=== PATIENT | female | born 1930 | race Caucasian/White ===

== ENCOUNTER → 2016-04-02 | Outpatient (CLI) | payer OTHER ==
[~2016-04-02] VITALS: Ht 154.9 cm; Wt 86.2 kg
[~2016-04-02] MED LIST: ADVIL100 M2 PO; ASPIR 8181 MG PO; ASPIRIN EC81 M1 PO; ATIVAN0.5 MG PO; BACTRIM DS TAB1 EACH PO; BUDEPRION SR150 MG PO; BUPROPION XL300 MG PO; CALCIUM 500+D1 EAC2 PO; CALCIUM 600 +1 EAC1 PO; CELEBREX 200 M200 M1; CELEBREX 200 M200 M1 PO; CELEBREX100 MG/1 C PO; CELEBREX50 MG PO; COENZYME Q10200 M2 PO; COLACE100 MG PO; COREG6.25 MG PO; CORTEF5 MG PO; ESCITALOPRAM OX20 MG PO; FENTANYL PA25 MCG/HR TRANSDERM; FLORASTOR250 MG PO; FLORINEF ACETA0.1 MG PO; FLUDROCORTISON0.1 MG PO; HYDROCHLOROTH12.5 M1 PO; HYDROCODON-ACE1 EAC7 PO; HYDROCODONE-AP1 EAC6 PO; K-DUR10 MEQ PO; LEVOTHYROXINE0.05 MG PO; LEVOXYL75 MCG PO; LEXAPRO 10 MG T10 M1 PO; LORTAB 10-3251 EACH PO; MAGNESIUM400 MG PO; MEDROL4 MG PO; MULTIVITAMINS1 EAC7 PO; NEXIUM40 MG PO; NORCO 5-325 TA1 EACH PO; NORVASC2.5 MG PO; OMEGA-3 FISH O1 EAC3 PO; OMEPRAZOLE 20 M20 M1 PO; ONDANSETRON HCL4 M2 PO; ORAPRED15 MG/5 M1; POTASSIUM20 PO; RISPERDAL 1 MG T1 MG PO; SEROQUEL 25 MG25 M1 PO; SIMVASTATIN10 MG PO; TOPROL XL50 MG PO; TRAMADOL 50 MG50 MG PO; VITAMIN D1000 UNI1 PO; VITAMIN D5000 UNIT PO; VOLTAREN GEL 1100 G2 TOP; [UNRECOGNIZED DRUG - CODE] PO
--- NOTE | ~2016-04-02 | HPC ---
[facility] [place] [address] PAIN MANAGEMENT CONSULTATION Name: NATHEN TAMAYOCrow IBARRABOBBI Room #: REG Gerber Perez#: [id number] Admission: 04/02/16 Attend Phys: Sal Kaur DO Discharge: Date of : 32 Report #: [id number] THIS REPORT FOR: //name// CC: TAMMIE Kaur HISTORY OF PRESENT ILLNESS: The patient is an 85-year-old female, prior seen on 11/03/2015. At that time, she was diagnosed with neuropathic pain, chronic pain syndrome, component of lumbar radiculopathy status post decompressive laminectomy, medication management complicated by dementia. She was given a caudal epidural injection at that time. She returns to the pain clinic today. We had a prolonged visit from 15:16 to 15:45. Greater than 50% of this 25+ minute visit was spent counseling the patient. The patient notes that she has low back pain, left greater than right, 0 at present, 3 with walking. She describes chronic aching pain. She notes the prior injection gave her 80% relief, until she fell on December and broke her hip. She actually had a left pelvic rami fracture, and left acetabular fracture. She was in the hospital 01/09/2016 through 01/13/2016. She was discharged, using fentanyl patch and oxycodone. She has weaned down to hydrocodone, fairly nominal dose at 5/325 one tablet t.i.d. She was seen in the company today of her daughter, who typically is seen with her. Her daughter is supportive and helps with the medical history. At last visit, we did briefly brought up the possibility of spinal cord stimulator, though really at present, she does not have radicular component of pain, and it is primarily in the left low back SI area. PHYSICAL EXAMINATION: Shows a pleasant 85-year-old female, BMI is 35.9 kilograms per meter squared. Blood pressure is 143/75, pulse of 86, respirations are 18. She is alert and oriented to person, place, and time, judged to be a reasonable historian. Again, he has some minor cognitive defect, but is pretty oriented today. She does have a difficult time telling me how much pain she has with activity. She is little bit confused about medication changes from hospital discharge back in 01/13/2016 to today's date. Again, however, she is on a much lower dose of opiate overall. She does note pain seems to be exacerbated with sitting and/or standing and walking. She is in a wheelchair today, though objectively lower extremity strength is symmetric. Straight leg raise is negative. She is very tender over the left SI, with a positive Dima test on this side. ASSESSMENT: Lumbar radiculopathy status post decompressive laminectomy and neuropathic pain, requiring complex medication management, history of some dementia and now with a new component of what appears to be sacroiliac mediated pain, lumbosacral spondylosis, left greater than right. Again, tender over the left SI area with modestly positive Dima's test on this side. [address] [address] PAIN MANAGEMENT CONSULTATION Name: NATHEN TAMAYOCrow MARTINES Room #: REG BEREINCE Perez#: [id number] Admission: 04/02/16 Attend Phys: Sal Kaur, Discharge: Date of : 32 Report #: [id number] RECOMMENDATIONS: 1. Continue hydrocodone 5/325 t.i.d. try holding the p.m. dose, if pain is fairly nominal. 2. Recommend resuming Aleve [id number] (naproxen sodium) 220 mg with breakfast. She really has no dramatic contraindications, and I think this may help with some of the prostaglandin-induced myofascial and/or muscular component of pain. 3. Follow up in 3 weeks for reevaluation and consideration for left SI joint injection at that time. We will have her cancelled, if the left back pain is improving. We will seek authorization for the left SI joint injection nonetheless. Thank you for allowing me to participate in this patient's care. <ELECTRONICALLY SIGNED> By: Sal Kaur DO 04/07/16 0729 0721 1122 Sal Kaur DO /nt
[2016-04-02 15:11] VITALS: BP 143/75
== END ==
LOC: PAIN 07:42
DX: M47.27 Other spondylosis with radiculopathy, lumbosacral region (principal); G89.4 Chronic pain syndrome; M96.1 Postlaminectomy syndrome, not elsewhere classified; F03.90 Unspecified dementia, unspecified severity, without behavioral disturbance, psychotic disturbance, mood disturbance, and anxiety

== ENCOUNTER → 2016-08-27 | Outpatient (CLI) | payer OTHER ==
[~2016-08-27] VITALS: Ht 154.9 cm; Wt 84.6 kg
[~2016-08-27] MED LIST changes: +CALCIUM 500 +1 EAC5 PO
--- NOTE | ~2016-08-27 | HPC ---
[facility] [place] [address] PAIN MANAGEMENT CONSULTATION Name: ROSELYN TAMAYO Room #: REG [facility] MeiJose#: [id number] Admission: 08/27/16 Attend Phys: Sal Kaur DO Discharge: Date of : 32 Report #: [id number] THIS REPORT FOR: //name// CC: MAIKOL Kaur DATE OF SERVICE: 08/27/2016 The patient is a very pleasant 85-year-old female well known to the pain clinic, typically treated for symptomatic SI joint dysfunction, right side. She was seen 05/17/2016. We did a right SI joint injection at that time with overall improvement of baseline pain. She has continued with some physical exercises at home, though she notes recently pain has begun to recur and it is starting to get exacerbated with the exercises. She does use a rollator type walker. She notes pain is episodic, stays in the right low back and buttock, does not radiate down in the leg. It "grabs" her at various times. She does use some Voltaren gel topically and it is helpful. Returns to pain clinic today again noting greater than 80% relief following the SI joint injection now some 3 months ago. Relief was good for about 2 months, gradually begun to recur. She denies antecedent trauma and overuse. PHYSICAL EXAMINATION: Shows pleasant 85-year-old female. Vital signs are stable as noted in the EMR. Rises from chair using armrest. Modestly antalgic gait. Very tender over the SI joint with grossly positive Dima test, grossly positive Gaenslen's and pelvic distraction all on the right side. 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 She is seen in the company of her daughter who is supportive. PROCEDURE: Right SI joint injection under fluoroscopy. PROCEDURE NOTE: After written informed consent was obtained, the patient was taken to fluoroscopy suite, placed in prone position. After sterile prep and drape, skin wheal was raised. A 22-gauge stylet needle was placed to contact the inferior aspect of the right SI joint. Negative aspiration was accomplished. No Omnipaque was injected due to history of IODINE allergy, 40 mg triamcinolone plus 2 mL of 0.5% preservative-free bupivacaine was injected into and around the joint. Needle was removed. The area was cleansed, Band-Aids [facility] [address] [place] [address] PAIN MANAGEMENT CONSULTATION Name: NATHEN TAMAYON Jade Room #: REG [facility]#: [id number] Admission: 08/27/16 Attend Phys: Sal Kaur DO Discharge: Date of : 32 Report #: [id number] applied. The patient monitored for an appropriate period of time, discharged in good and stable condition. <ELECTRONICALLY SIGNED> By: Sal Kaur DO 08/30/16 0856 1220 1523 Sal Kaur DO /blade
[2016-08-27 11:10] VITALS: BP 127/63
== END ==
LOC: PAIN 06:59
DX: M53.3 Sacrococcygeal disorders, not elsewhere classified (principal)

== ENCOUNTER → 2016-11-04 | Outpatient (CLI) | payer OTHER ==
[~2016-11-04] VITALS: Ht 160 cm; Wt 82.6 kg
[~2016-11-04] MED LIST changes: +ACTONEL150 MG PO; +LIORESAL 10 MG10 MG PO; +SENNA8.6 MG PO
--- NOTE | ~2016-11-04 | HPC ---
[facility] [place] [address] PAIN MANAGEMENT CONSULTATION Name: ROSELYN TAMAYO [facility] [id number] Admission: 11/04/16 Attend Phys: Sal Kaur DO Discharge: Date of : 32 Report #: [id number] THIS REPORT FOR: //name// CC: MAIKOL Kaur The patient is an 85-year-old female last seen in the pain clinic 08/27/2016. The patient typically is treated for right SI joint dysfunction. She is status post lumbar decompressive laminectomy, neuropathic pain with mild dementia. She is seen in the company of her daughters who are supportive. Did a right SI joint injection at last visit, we have done SI joint injections in the past over time along with caudal injections all with general improvement of baseline pain. She returns to pain clinic today noting pain remains problematic, last injection only helped for a short period, about 6 weeks. She typically gets several months with these therapeutic interventions. To the patient's credit, she has continued to do some physical activity including participating in a Nu-Step exercise 10 or 15 minutes once or twice a week as well as chair exercises at her residential community. She lives at [facility] in assisted living facility. They do have a biomedical manager there who has started her on some baclofen 10 mg at bedtime. She continues to use hydrocodone 5/325 one tablet in the morning, typically half in the afternoon and half in the evening as needed for pain. She notes that with this she seems to be reasonably functional. She was recently diagnosed with osteoporosis and started on Actonel. PHYSICAL EXAMINATION: GENERAL: Today shows 85-year-old female, BMI is 32.2 kilograms per meter squared. VITAL SIGNS: Stable as noted in the EMR. EXTREMITIES: Rises from chair using armrest, exquisitely tender over the right SI joint. Lower extremity strength is generally symmetric. Flexion is good about 80 degrees. Positive Dima test on the right. Straight leg raise is negative. ASSESSMENT: 1. Symptomatic lumbar radiculopathy status post decompressive laminectomy, neuropathic pain, right SI mediated pain, component of mild dementia and osteoporosis. RECOMMENDATIONS: 1. Continue baseline medications unchanged, will discontinue Nexium, which I started at last visit due to some acute gastroesophageal reflux. I applaud the choice of baclofen bedtime. Hopefully, she can start to wean a little bit more of her hydrocodone. Strongly encouraged her to continue with exercising, the chair aerobics is good, but I specifically would like to see her continue the [address] [address] PAIN MANAGEMENT CONSULTATION Name: ROSELYN TAMAYO Room #: REG [facility] Ana#: [id number] Admission: 11/04/16 Attend Phys: Sal Kaur DO Discharge: Date of : 32 Report #: [id number] Nu-Step 10-15 minutes 2 times a week to help with core strength. 2. Acute right SI mediated pain. RECOMMENDATION: Right SI joint injection under fluoroscopy. PROCEDURE NOTE: After written informed consent was obtained, the patient was taken to the fluoroscopy suite and placed in prone position. After sterile prep and drape, skin was raised. A 22-gauge stylet needle was placed to contact the inferior aspect of the right SI joint. Negative aspiration was accomplished. 2 mL of 0.5% preservative-free bupivacaine +40 mg triamcinolone was injected into and around the joint. Needle was removed. The area was cleansed, Band-Aids applied. The patient monitored for an appropriate period of time, discharged in good and stable condition. <ELECTRONICALLY SIGNED> By: Sal Kaur DO 11/05/16 1225 1455 [id number] Sal Kaur DO /nt
[2016-11-04 13:19] VITALS: BP 130/79
== END ==
LOC: PAIN 07:01
DX: M53.3 Sacrococcygeal disorders, not elsewhere classified (principal); G89.29 Other chronic pain; M54.16 Radiculopathy, lumbar region; M81.0 Age-related osteoporosis without current pathological fracture; F03.90 Unspecified dementia, unspecified severity, without behavioral disturbance, psychotic disturbance, mood disturbance, and anxiety; Z98.890 Other specified postprocedural states; Z88.8 Allergy status to other drugs, medicaments and biological substances; Z79.82 Long term (current) use of aspirin; Z79.899 Other long term (current) drug therapy

== ENCOUNTER → 2017-09-09 | Outpatient (CLI) | payer OTHER ==
[~2017-09-09] VITALS: Ht 157.5 cm; Wt 76.9 kg
[~2017-09-09] MED LIST changes: +FOSAMAX 70 MG T70 MG PO
--- NOTE | ~2017-09-09 | HPC ---
[facility] [address] [address] [place] [address] PAIN MANAGEMENT CONSULTATION Name: TAMAYOROSELYN L Room #: REG [facility] Ana#: [id number] Admission: 09/09/17 Attend Phys: Sal Kaur DO Discharge: Date of : 32 Report #: [id number] THIS REPORT FOR: //name// CC: Physician staff PRAVIN Kaur HISTORY OF PRESENT ILLNESS: The patient is a pleasant 86-year-old female. She is typically treated for SI-mediated pain. Last seen in the pain clinic 06/06/2017, was given bilateral SI joint injections at that time. Continued on hydrocodone, fairly low dose, 5/325, typically, one in the morning, half in the afternoon and half in the evening. This is being managed by her physician at [facility]. Since we saw her, she had fallen, 08/17/2017, had an L1 vertebroplasty. MRI does note significant spinal stenosis at L3-L4 down to 3 mm. She has some lymphedema, which has been present since January. Cardiovascular workup was unremarkable. Primary pain today is in the low back and SI area. She does note again the prior injections have always afforded good relief. Rates her pain a "10" on the VAS at present. Notes pain is in the low back radiating into the buttock, exacerbated with any activity. PHYSICAL EXAMINATION: GENEAL: Shows a pleasant 86-year-old female, BMI is 31 kilograms per meter squared. She is seen in the company of 2 daughters who are supportive. She is in a wheelchair. VITAL SIGNS: Stable as noted in the EMR. MUSCULOSKELETAL: Lower extremity strength is diminished. She does have some peripheral edema. Rises from chair using armrest. Very tender over the SI joints with positive Dima test bilaterally. ASSESSMENT: Symptomatic sacroiliac joint dysfunction by clinical exam and history. RECOMMENDATIONS: The patient has primary right SI-mediated pain, though it is present bilaterally. We encourage ambulation, exercise and current medication. We will have the patient return Tuesday for bilateral SI joint injection under fluoroscopy. Discharged in good and stable condition. <ELECTRONICALLY SIGNED> By: Sal Kaur DO 09/12/17 0706 1606 [id number] Sal Kaur DO /nt
[2017-09-09 13:51] VITALS: BP 140/72
== END ==
LOC: PAIN 07:21
DX: M53.3 Sacrococcygeal disorders, not elsewhere classified (principal)

== ENCOUNTER → 2017-09-22 | Outpatient (CLI) | payer OTHER ==
[~2017-09-22] VITALS: Ht 157.5 cm; Wt 75.8 kg
[~2017-09-22] MED LIST changes: +ACETAMINOPHEN325 M1 PO; +BUTRANS1 EAC3 TRANSDERM; +HEPARIN 1,1000 UNIT/ SUBQ; +LIDODERM1 EACH TRANSDERM; +MIRALAX17 GM PO; +SIMETHICON CHEW80 M1 PO
--- NOTE | ~2017-09-22 | HPC ---
[facility] [address] [place] [address] PAIN MANAGEMENT CONSULTATION Name: ROSELYN TAMAYO Room #: REG Gerber Perez#: [id number] Admission: 09/22/17 Attend Phys: Sal Kaur DO Discharge: Date of : 32 Report #: [id number] THIS REPORT FOR: //name// CC: Physician staff PRAVIN Kaur The patient is a delightful 86-year-old female, typically seen in the company of her two very supportive daughters. She was last seen on 09/09/2017. 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 The patient is status post L1 compression fracture and vertebroplasty with lumbar radiculopathy secondary to spinal stenosis, critical stenosis at L4-L5 down to 3-4 mm, ligamentum flavum hypertrophy is 6 mm at this level and 5 mm at L3-L4. In the interval since I last saw her, she was admitted to the hospital ([facility]) for low abdominal pain, possible component of constipation secondary to opiate analgesics, small-bowel obstruction and subsequent dehydration and UTI. She was found to have a new thoracic compression fracture. She ultimately did receive her bilateral SI joint injections by Dr. Troy Forrester in the hospital. She returns to pain clinic today. She notes pain continues to be problematic, rates as a 7-8 on a VAS. She is taking hydrocodone 5/325 four a day with nominal efficacy. Notes pain is exacerbated with standing, walking and bending. She is still in rehab doing physical therapy. She is getting subcutaneous heparin. She notes pain is infracostal radiating from back to front. PHYSICAL EXAMINATION: Shows tenderness in the low back with standing and walking. The SI pain appears to be little improved. ASSESSMENT: New vertebral compression fracture, I believe it is T12 with nominal compression at 10%, her treating physicians have elected a conservative approach and indeed she does not have significant tenderness over the posterior spinous process at this level. She does have more radicular pain component, possible myofascial pain component. Discussion with the family today about therapeutic options. Ultimately, we would like to continue with conservative therapy, continue hydrocodone 5/325 up to 4 a day p.r.n., but we will add Butrans patch at 10 mcg q. 7 days. We will trial this for at least 1 month while compression fracture heals. Continue working with physical therapy. [address] [address] PAIN MANAGEMENT CONSULTATION Name: ROSELYN TAMAYO Room #: REG CL Ana#: [id number] Admission: 09/22/17 Attend Phys: Sal Kaur DO Discharge: Date of : 32 Report #: [id number] Ultimately, the patient was discharged in good and stable condition. Follow up in [address] Mckenzie, jodi if needed. <ELECTRONICALLY SIGNED> By: Sal Kaur DO 09/23/17 0829 1212 1328 Sal Kaur DO /blade
[2017-09-22 10:39] VITALS: BP 159/71
== END ==
LOC: PAIN 09-16 14:46
DX: M47.818 Spondylosis without myelopathy or radiculopathy, sacral and sacrococcygeal region (principal); M54.16 Radiculopathy, lumbar region; M48.061 Spinal stenosis, lumbar region without neurogenic claudication